=== PATIENT | female | born 1940 | race African-American/Black ===

== ENCOUNTER 2016-11-22 12:21 | Day surgery (SDC) | payer OTHER ==
[2016-11-19 15:36] VITALS: BMI 29.0
[2016-11-22] MEDS ORDERED: LIDOCAINE HCL 1%, 10 MG/ML (20ML VIAL) ONE (13:44)
[2016-11-22] MEDS ORDERED: TRIAMCINOLONE ACET 40MG/1ML VIAL ONE (13:44)
[2016-11-22] MEDS ORDERED: SODIUM BICARBONATE 8.4% 50 MEQ/50 ML VIAL ONE (13:45)
[2016-11-22] MEDS ORDERED: ONDANSETRON 4 MG/2 ML VIAL IVPUSH PRN (15:03)
[2016-11-22] MEDS ORDERED: oxyCODONE HCL 5 MG TABLET PO PRN (15:03)
[2016-11-22] MEDS ORDERED: LACTATED RINGERS SOLUTION 1,000 ML IV SCH (15:15)
[2016-11-22 15:30] VITALS: TEMP 97.6
[2016-11-22 15:56] VITALS: BP 112/72; PULSE 70
--- NOTE | 2016-11-23 09:40 | OP ---
DATE OF OPERATION: 11/22/2016 PROCEDURE PERFORMED: Lumbar Epidural Steroid Injection. DIAGNOSIS/INDICATION: Lower extremity radiculopathy. CONSENT: The procedure was explained and all questions answered. Risks discussed include bleeding, allergy, infection, and inadvertent puncture of the dura. Informed, written consent was obtained. CHIEF ENGINEER WATERWORKS: Wai Mcallister MD TECHNIQUE: The patient was prepped and draped in the usual sterile fashion. Using fluoroscopic guidance, the L3-4 interspinous space was localized, and the overlying skin and subcutaneous soft tissues were locally anesthetized with 1% Lidocaine. A 20-gauge epidural needle was advanced into the epidural space using [id number] technique. Epidurogram was performed using 5 mL Omnipaque contrast injected into the epidural space to verify needle tip position and to visualize epidural space and nerve root in AP and lateral views. Contrast spread was seen. A lateral spot radiograph was obtained. Depo-Medrol of 40 mg and 2 mL normal saline were injected into the epidural space and the needle was removed. The procedure was well tolerated. There were no immediate complications. Nonionic contrast was used because of the possibility of intrathecal administration. POSTOPERATIVE DIAGNOSIS: Lumbar epidural steroid injection for lumbar radiculopathy. WAI MCALLISTER M.D. [id number]
== END 2016-11-22 16:10 | disposition home or self-care (01) ==
LOC: FASU 12:21
PROVIDERS: ATTEND Pain Medicine Interventional Pain Medicine
PROC: B01BZZZ Fluoroscopy of Spinal Cord (ICD-10-PCS; 2016-11-22)
PROC: 3E0R3CZ (ICD-10-PCS; principal; 2016-11-22 14:43)
DX: M54.16 Radiculopathy, lumbar region (principal)
CPT/HCPCS: 72100-TC; 76000-TC; 94760

== ENCOUNTER 2017-05-30 13:21 | Day surgery (SDC) | payer OTHER ==
[2017-05-26 16:59] VITALS: BMI 30.7
[2017-05-30] MEDS ORDERED: LIDOCAINE HCL/PF 2% SDV 5ML VIAL ONE (14:53)
[2017-05-30] MEDS ORDERED: PROPOFOL 20 ML ONE (14:53)
[2017-05-30] MEDS ORDERED: IOHEXOL 180 MG/1 ML ML IJ ONE (15:05)
[2017-05-30] MEDS ORDERED: TRIAMCINOLONE ACET 40MG/1ML VIAL IJ ONE (15:05)
[2017-05-30] MEDS ORDERED: LIDOCAINE HCL 1%, 10 MG/ML (20ML VIAL) INF ONE (15:05)
[2017-05-30 16:06] VITALS: TEMP 98.2
[2017-05-30 16:15] VITALS: BP 120/74; PULSE 91
--- NOTE | 2017-06-02 09:30 | OP ---
DATE OF OPERATION: 05/30/2017 PROCEDURE PERFORMED: Lumbar Epidural Steroid Injection. DIAGNOSIS/INDICATION: Lower extremity radiculopathy. CONSENT: The procedure was explained and all questions answered. Risks discussed include bleeding, allergy, infection, and inadvertent puncture of the dura. Informed, written consent was obtained. BODY TECHNICIAN/PAINTER: Humphrey Astorga MD TECHNIQUE: The patient was prepped and draped in the usual sterile fashion. Using fluoroscopic guidance, the L3-4 interspinous space was localized, and the overlying skin and subcutaneous soft tissues were locally anesthetized with 1% Lidocaine. A 20-gauge epidural needle was advanced into the epidural space using [id number] technique. Epidurogram was performed using 5 mL Omnipaque contrast injected into the epidural space to verify needle tip position and to visualize epidural space and nerve root in AP and lateral views. Contrast spread was seen. A lateral spot radiograph was obtained. Depo-Medrol of 40 mg and 2 mL normal saline were injected into the epidural space and the needle was removed. The procedure was well tolerated. There were no immediate complications. Nonionic contrast was used because of the possibility of intrathecal administration. POSTOPERATIVE DIAGNOSIS: Lumbar epidural steroid injection for lumbar radiculopathy. Remy [id number]
== END 2017-05-30 16:10 | disposition home or self-care (01) ==
LOC: FASU 13:21
PROVIDERS: ATTEND Pain Medicine Interventional Pain Medicine
PROC: B01BYZZ Fluoroscopy of Spinal Cord using Other Contrast (ICD-10-PCS; 2017-05-30)
PROC: 3E0R33Z Introduction of Anti-inflammatory into Spinal Canal, Percutaneous Approach (ICD-10-PCS; principal; 2017-05-30 15:03)
DX: M54.16 Radiculopathy, lumbar region (principal)
CPT/HCPCS: 72100-TC-FY; 82962

== ENCOUNTER 2018-06-19 13:17 | Day surgery (SDC) | payer OTHER ==
[2018-06-16 13:27] VITALS: BMI 31.6
[~2018-06-19 13:17] MED LIST: LIDOCAINE HCL 1%, 10 MG/ML (50 mL VIAL) IJ ONE; SODIUM BICARBONATE 8.4% 50 MEQ/50 ML DISP.SYRIN IV ONE; TRIAMCINOLONE ACETONIDE 40 MG/ML 10 ML VIAL IJ ONE
[2018-06-19] MEDS ORDERED: oxyCODONE HCL 5 MG TABLET PO PRN (13:32)
[2018-06-19] MEDS ORDERED: ONDANSETRON 4 MG/2 ML VIAL IVPUSH PRN (13:32)
[2018-06-19] MEDS ORDERED: LACTATED RINGERS SOLUTION 1,000 ML IV SCH (13:45)
[2018-06-19] MEDS ORDERED: PROPOFOL 20 ML ONE (15:23)
[2018-06-19] MEDS ORDERED: TRIAMCINOLONE ACET 40MG/1ML VIAL ONE (15:24)
[2018-06-19] MEDS ORDERED: MIDAZOLAM HCL 2 MG/2 ML SINGLE DOSE VIAL ONE (15:36)
[2018-06-19] MEDS ORDERED: IOHEXOL 180 MG/1 ML ML IJ ONE ×2 (15:43→15:49)
[2018-06-19] MEDS ORDERED: SODIUM BICARBONATE 8.4% 50 MEQ/50 ML DISP.SYRIN IV ONE (15:49)
[2018-06-19] MEDS ORDERED: LIDOCAINE HCL 1%, 10 MG/ML (50 mL VIAL) IJ ONE (15:49)
[2018-06-19] MEDS ORDERED: TRIAMCINOLONE ACETONIDE 40 MG/ML 10 ML VIAL IJ ONE (15:49)
[2018-06-19 16:45] VITALS: TEMP 98
[2018-06-19 16:47] VITALS: PULSE 80
[2018-06-19 17:39] VITALS: BP 120/72
--- NOTE | 2018-06-19 23:08 | OP ---
DATE OF OPERATION: 06/19/2018 PROCEDURE PERFORMED: Lumbar Epidural Steroid Injection. DIAGNOSIS/INDICATION: Lower extremity radiculopathy. CONSENT: The procedure was explained and all questions answered. Risks discussed include bleeding, allergy, infection, and inadvertent puncture of the dura. Informed, written consent was obtained. INSPECTOR HEATING AND REFRIGERATION: Wai Mcallister MD TECHNIQUE: The patient was prepped and draped in the usual sterile fashion. Using fluoroscopic guidance, the L2-3 interspinous space was localized, and the overlying skin and subcutaneous soft tissues were locally anesthetized with 1% Lidocaine. A 20-gauge epidural needle was advanced into the epidural space using [id number] technique. Epidurogram was performed using 5 mL Omnipaque contrast injected into the epidural space to verify needle tip position and to visualize epidural space and nerve root in AP and lateral views. Contrast spread was seen. A lateral spot radiograph was obtained. Depo-Medrol of 40 mg and 2 mL normal saline were injected into the epidural space and the needle was removed. The procedure was well tolerated. There were no immediate complications. Nonionic contrast was used because of the possibility of intrathecal administration. POSTOPERATIVE DIAGNOSIS: Lumbar epidural steroid injection for lumbar radiculopathy. WAI MCALLISTER M.D. [id number]
== END 2018-06-19 17:40 | disposition home or self-care (01) ==
LOC: FASU 13:17
PROVIDERS: ATTEND Pain Medicine Interventional Pain Medicine
PROC: B01BYZZ Fluoroscopy of Spinal Cord using Other Contrast (ICD-10-PCS; 2018-06-19)
PROC: 3E0R33Z Introduction of Anti-inflammatory into Spinal Canal, Percutaneous Approach (ICD-10-PCS; principal; 2018-06-19 15:49)
DX: M54.16 Radiculopathy, lumbar region (principal)
CPT/HCPCS: 82962